=== PATIENT | female | born 1995 | race Two or more races ===

== ENCOUNTER 2022-09-26 09:24 | Outpatient (CLI) | payer OTHER | END 2022-09-26 10:00 | disposition home or self-care (01) | LOC: NST 09:24 | PROVIDERS: ATTEND Obstetrics & Gynecology | DX: Z34.83 Encounter for supervision of other normal pregnancy, third trimester (principal) ==

== ENCOUNTER 2022-10-01 14:30 | Inpatient (IN) | payer OTHER ==
[~2022-10-01] VITALS: Ht 152.4 cm; Wt 78.5 kg
[2022-10-16] MEDS ORDERED: PRENATAL + DHA1 EAC1 PO (17:46)
== END 2022-10-19 13:35 | disposition home or self-care (01) | DRG 807 ==
LOC: EDUNIT# 14:30 → OB/GYN 10-15 14:30 → LDR 10-16 16:38 → OB/GYN 10-17 20:36
PROVIDERS: ADMIT Obstetrics & Gynecology; ATTEND Obstetrics & Gynecology
PROC: 10E0XZZ Delivery of Products of Conception, External Approach (ICD-10-PCS; principal; 2022-10-16)
PROC: 4A1HXCZ Monitoring of Products of Conception, Cardiac Rate, External Approach (ICD-10-PCS; 2022-10-16)
DX: O80 Encounter for full-term uncomplicated delivery (principal); Z37.0 Single live birth; Z3A.40 40 weeks gestation of pregnancy; Z20.822 Contact with and (suspected) exposure to COVID-19

== ENCOUNTER 2022-10-03 12:55 | Outpatient (CLI) | payer OTHER | END 2022-10-03 14:44 | disposition home or self-care (01) | LOC: NST 12:55 | PROVIDERS: ATTEND Obstetrics & Gynecology | DX: Z34.83 Encounter for supervision of other normal pregnancy, third trimester (principal) ==